=== PATIENT | male | born 1960 | race Caucasian/White ===

== ENCOUNTER 2024-10-15 08:50 | Emergency (ER) | payer OTHER, SELFPAY ==
[2024-10-15] VITALS (16 sets, daily range): BP systolic 141–159; BP diastolic 83–101; PULSE 62–69; RESP 7–20; TEMP 36.8; O2SAT 93–97; BMI 32.2
--- NOTE | 2024-10-15 09:32 | ED.NEUROSD ---
HPI - Neuro Symptoms/Deficit General Time Seen by Provider: 09:32 Date Seen: 10/15/24 Chief Complaint: Neuro Symptoms/Altered Deficit Stated Complaint: Confusion Time Seen by Provider: 10/15/24 09:31 Source: patient and RN notes reviewed Mode of arrival: ambulatory Limitations: no limitations History of Present Illness HPI Narrative: Micky is a very pleasant 63-year-old gentleman from [place] who comes to the emergency room with family members for evaluation regarding 2 episodes of confusion this morning. Micky noted to be getting up around 730 and 8 and had an episode of confusion witness by family members. This lasted approximately 1 hour at which time they essentially administered the Saxon Stroke Scale which was negative, checked his blood sugar which was elevated, and continue to monitor him. Patient recalls parts of this but does not remember a lot of the interaction even though he was awake. He started feeling better and then felt like the symptoms are coming back and thus came to the ER.. Here in the emergency room ileum states he just feels ?out of it?. He also noted some shakiness in his arms right greater than left. This has not happened to him in the past. He notes that he also had an episode of feeling like he was out of balance when he just returned from the restroom. This had happened a few times in the past week. He has been taking frequent air flights. Denies any ear fullness or ear pain. Family does not note any unusual vomiting, loss of bowel or bladder control, recent trauma Denies chest pain shortness of breath recent illness cough cold congestion fever dysuria or abdominal pain. Related Data Home Medications ?Medication ?Instructions ?Recorded ?Confirmed amlodipine 5 mg tablet (Norvasc) 5 mg PO DAILY 10/15/24 10/15/24 levothyroxine 50 mcg capsule 50 mcg PO DAILY 10/15/24 10/15/24 losartan 50 mg tablet (Cozaar) 50 mg PO BID 10/15/24 10/15/24 metoprolol succinate 50 mg 50 mg PO DAILY 10/15/24 10/15/24 tablet,extended release 24 hr (Toprol XL) red yeast rice 300 mg-coQ10 30 cap PO 10/15/24 dk--wsn 120 mg-epa-fish capsule Allergies Allergy/AdvReac Type Severity Reaction Status Date / Time No Known Drug Allergies Allergy Verified 10/15/24 09:22 Review of Systems Status of ROS: Reports: 10 or more systems reviewed and unremarkable except as noted in History and below Exam Narrative: Exam Narrative: Alert and oriented. No acute distress. EOM is full and pupils are equal round reactive. Head is atraumatic. TMs bilaterally without fluid or erythema. Oral cavity with moist mucous membranes. Neck is supple. Face symmetrical with eyebrow raise and smile. Heart with regular rate and rhythm and lungs are clear bilaterally abdomen soft nontender. Upper extremity strength and motor is intact lower extremity strength and motor is intact dexterity is appropriate. Mentation is normal GCS of 15. NIH SS 0 Const: Vital Signs, click to edit/add: Vital Signs - 24 hr 10/15/24 09:11 Temperature 98.2 F Pulse Rate [Pulse Oximeter] 69 Respiratory Rate 18 Blood Pressure [Ri ght Upper Arm] 159/98 H Pulse Oximetry 95 Oxygen Delivery Me thod Room Air Documenting provider has reviewed patient's vital signs: yes Course Course ED Course: Differential diagnosis includes but is not limited to seizure, TIA, brain lesion, fatigue. At this time patient does note 5 be beers yesterday but none today. No other drug use. No recent trauma. Patient will undergo CT/CTA. Will speak to Neurology. Will obtain EKG, troponin, CBC, comprehensive panel and urinalysis. Reevaluation(s) Reevaluation #1: Patient continues to do well and has had no recurrence of symptoms. Consultations Consultation #1: Dr. Peña of [facility] consulted. At this time agrees with CT CTA but thinks this is like Niharika TIA and more likely possible seizure. After results of CT CTA were return did speak with neurologist about initiation of aspirin or anti seizure medication and he states that he would not to either of these medications but would place patient on seizure precautions and recommends outpatient MRI and EEG Vital Signs Vital signs: Initial Vital Signs Temperature 98.2 F 10/15/24 09:11 Temperature Source Temporal Artery Scan 10/15/24 09:11 Pulse Rate 69 10/15/24 09:11 Respiratory Rate 18 10/15/24 09:11 Blood Pressure 159/98 H 10/15/24 09:11 Blood Pressure Mean 118 H 10/15/24 09:11 Blood Pressure Position Sitting 10/15/24 09:11 Pulse Oximetry 95 10/15/24 09:11 Oxygen Delivery Method Room Air 05/11/25 09:11 Vital Signs Temperature 98.2 F 10/15/24 09:11 Pulse Rate 69 10/15/24 09:11 Respiratory Rate 18 10/15/24 09:11 Blood Pressure 159/98 H 10/15/24 09:11 Pulse Oximetry 95 10/15/24 09:11 Oxygen Delivery Method Room Air 10/15/24 09:11 Temperature 98.2 F 10/15/24 09:11 Pulse Rate 69 10/15/24 09:11 Respiratory Rate 18 10/15/24 09:11 Blood Pressure 159/98 H 10/15/24 09:11 Pulse Oximetry 95 10/15/24 09:11 Oxygen Delivery Method Room Air 10/15/24 09:11 Medications Administered Medications: Discontinued Medications Generic Name Dose Route Start Last Admin Trade Name Freq PRN Reason Stop Dose Admin Sodium Chloride 500 mls @ 500 mls/hr 10/15/24 09:49 10/15/24 10:17 0.9 % Sodium Chloride 500 Ml IV 10/15/24 10:48 500 mls/hr .Q1H ONE Administration MDM - Neuro Symptoms/Deficit MDM Narrative Medical decision making narrative: 1. Episode of confusion-CT and CTA reassuring. In my conversation with Neurology feels this is most likely a possible seizure more than a TIA. Recommend at this time discharging with outpatient MRI and EEG which they can obtain back in their hometown in [place]. Recommend against any activity which could place him at risk for danger such as driving. Would also decrease and eliminate alcohol use until with this is figured out. 2. Disposition-home with family at this time. A note to accompany them to the airport stating reason for ED visit and missed flight. Fully this will may be taken into account when they have to revoke their flight. EKG reassuring with a negative troponin. Second troponin pending Second troponin negative. I did speak once again to Neurology who suggests no medications at this time but does suggest outpatient follow-up. Spoke to Micky regarding need for abstinence from alcohol, driving. Did also provide a note for the airline that he is not cleared for flight until tomorrow. For recurrence of symptoms seek medical attention. Lab Data Attestation: I reviewed the patient's lab results. Labs: Lab Results 10/15/24 10/15/24 10/15/24 Range/Units 09:45 09:52 09:55 WBC 4.97 (4.50-11.00) K/uL RBC 5.08 (4.30-5.90) m/uL Hgb 15.8 (13.5-17.5) gm/dL Hct 47.9 (37.0-53.0) % MCV 94 (80-100) fL MCH 31 (26-34) pg MCHC 33 (32-36) gm/dL RDW Coeff of Zenaida 12.5 (11.5-15.5) % Plt Count 216 (140-440) K/uL Neut % (Auto) 68.0 (42.0-72.0) % Lymph % (Auto) 20.3 (20-44) % [place] % (Auto) 8.7 (0.0-11.0) % Eos % (Auto) 2.2 (0.0-7.0) % Baso % (Auto) 0.4 (0.0-3.0) % Neut # (Auto) 3.38 (1.7-7.0) K/uL Lymph # (Auto) 1.01 (0.90-2.90) K/uL [place] # (Auto) 0.40 (0.00-0.90) K/UL Eos # (Auto) 0.11 (0.00-0.50) K/uL Baso # (Auto) 0.02 (0.00-0.30) K/uL Abs Immat Gran (auto) 0.02 (0.00-0.30) K/uL Imm/Tot Granulo (auto) 0.4 % Sodium 138 (135-149) mmol/L Potassium 4.4 (3.6-5.1) mmol/L Chloride 104 (96-114) mmol/L Carbon Dioxide 26 (20-32) mmol/L Anion Gap 8 (7-15) mEq/L BUN 11 (7-30) mg/dL Creatinine 0.7 (0.5-1.5) mg/dL Estimated Creat Clear 78.44 Estimated GFR 102 ml/min Glucose 119 H (60-115) mg/dL Calcium 9.6 (8.4-10.6) mg/dL Total Bilirubin 0.7 (0.1-1.5) mg/dL AST 37 H (12-35) U/L ALT 37 (4-50) U/L Alkaline Phosphatase 87 (40-150) U/L Total Protein 7.5 (6.0-8.3) g/dL Albumin 4.5 (3.3-5.0) g/dL Urine Color (Yellow) Urine Appearance (Clear) Urine pH (5.0-8.5) Ur Specific [place] (1.000-1.030) Urine Protein (Negative) Urine Glucose (UA) (Negative) Urine Ketones (Negative) Urine Blood (Negative) Urine Nitrite (Negative) Urine Bilirubin (Negative) Urine Urobilinogen (0.2-1.0) Ur Leukocyte Esterase (Negative) Urine RBC (0-2) Urine WBC (0-5) Ur Squamous Epith Cells (None-Few) Urine Bacteria (None) SARS-CoV-2 (PCR) Negative SARS-CoV-2 (Negative) Influenza Type A (PCR) Negative PCR FLU A (Negative) Influenza Type B (PCR) Negative PCR FLU B (Negative) RSV (PCR) Negative PCR RSV (Negative) POC Troponin I 0.00 L (0.01-0.04) ng/ml 10/15/24 10/15/24 Range/Units 10:45 12:00 WBC (4.50-11.00) K/uL RBC (4.30-5.90) m/uL Hgb (13.5-17.5) gm/dL Hct (37.0-53.0) % MCV (80-100) fL MCH (26-34) pg MCHC (32-36) gm/dL RDW Coeff of Zenaida (11.5-15.5) % Plt Count (140-440) K/uL Neut % (Auto) (42.0-72.0) % Lymph % (Auto) (20-44) % [place] % (Auto) (0.0-11.0) % Eos % (Auto) (0.0-7.0) % Baso % (Auto) (0.0-3.0) % Neut # (Auto) (1.7-7.0) K/uL Lymph # (Auto) (0.90-2.90) K/uL [place] # (Auto) (0.00-0.90) K/UL Eos # (Auto) (0.00-0.50) K/uL Baso # (Auto) (0.00-0.30) K/uL Abs Immat Gran (auto) (0.00-0.30) K/uL Imm/Tot Granulo (auto) % Sodium (135-149) mmol/L Potassium (3.6-5.1) mmol/L Chloride (96-114) mmol/L Carbon Dioxide (20-32) mmol/L Anion Gap (7-15) mEq/L BUN (7-30) mg/dL Creatinine (0.5-1.5) mg/dL Estimated Creat Clear Estimated GFR ml/min Glucose (60-115) mg/dL Calcium (8.4-10.6) mg/dL Total Bilirubin (0.1-1.5) mg/dL AST (12-35) U/L ALT (4-50) U/L Alkaline Phosphatase (40-150) U/L Total Protein (6.0-8.3) g/dL Albumin (3.3-5.0) g/dL Urine Color Yellow (Yellow) Urine Appearance Clear (Clear) Urine pH 7.5 (5.0-8.5) Ur Specific [place] 1.010 (1.000-1.030) Urine Protein Negative (Negative) Urine Glucose (UA) Negative (Negative) Urine Ketones Negative (Negative) Urine Blood Negative (Negative) Urine Nitrite Negative (Negative) Urine Bilirubin Negative (Negative) Urine Urobilinogen 0.2 (0.2-1.0) Ur Leukocyte Esterase Negative (Negative) Urine RBC 0-2 (0-2) Urine WBC 0-2 (0-5) Ur Squamous Epith Cells None (None-Few) Urine Bacteria None (None) SARS-CoV-2 (PCR) (Negative) Influenza Type A (PCR) (Negative) Influenza Type B (PCR) (Negative) RSV (PCR) (Negative) POC Troponin I 0.00 L (0.01-0.04) ng/ml Imaging Data CT scan - head: Attestation: I have reviewed the pertinent imaging results. My impression: I do not note any acute findings. Radiologist's impression: No intracranial hemorrhage. Normal appearance of the white matter. No acute or subacute cortically based infarct. No cerebral edema. Small right middle cranial fossa arachnoid cyst. Normal ventricles. No skull fractures. No worrisome focal bone lesion. IMPRESSION: No acute intracranial findings. Head and neck angio: Attestation: I have reviewed the pertinent imaging results. My impression: The origins of the great vessels from the aortic arch are patent. The origin of the right vertebral artery is patent. The origin of the left vertebral artery is patent. The common carotid arteries are patent. There is no stenosis at the origin of the right internal carotid artery. There is no stenosis at the origin of the left internal carotid artery. The rest of the cervical segments of the internal carotid arteries are patent up to the skull base. The left vertebral artery is dominant. The cervical segments of the vertebral arteries are patent up to the skull base. The visualized lung apices are unremarkable. The thyroid gland is unremarkable. The soft tissues of the neck are unremarkable. There are degenerative changes in the cervical spine. IMPRESSION: Patent cervical vasculature. here is no cerebral aneurysm or large vessel occlusion. The right internal carotid artery is normal. The right middle cerebral artery and its branches are normal. The right anterior cerebral artery and its branches are normal. The left internal carotid artery is normal. The left middle cerebral artery and its branches are normal. The left anterior cerebral artery and its branches are normal. The anterior communicating artery is well visualized and appears normal. The right vertebral artery and PICA are normal. The left vertebral artery and PICA are normal. The left vertebral artery is dominant. The basilar artery is patent and appears normal. The right posterior cerebral artery is normal. The left posterior cerebral artery is normal. The visualized venous structures are patent. IMPRESSION: Patent proximal intracranial vasculature without intracranial aneurysms. ECG Data Attestation: I personally reviewed and interpreted this ECG as follows: ECG interpretation date: 10/15/24 Interpretation: EKG by my read shows sinus rhythm at a rate of 69. I do not note any acute ST or T-wave changes. LA and QT intervals within normal limits. Discharge Plan Discharge Clinical Impression: Episode of confusion Patient Disposition: Home, Self-Care Condition: Improved Additional Instructions: Follow-up at home for MRI and EEG. Until such time avoid alcohol, driving, any activity which could place you in danger. Seek medical attention for recurrence of symptoms. Note for airline regarding inability to fly until tomorrow. Prescriptions: No Action amlodipine [Norvasc] 5 mg tablet 5 mg PO DAILY losartan [Cozaar] 50 mg tablet 50 mg PO BID metoprolol succinate [Toprol XL] 50 mg tablet extended release 24 hr 50 mg PO DAILY levothyroxine 50 mcg capsule 50 mcg PO DAILY red [id number] mg capsule PO Follow Up/Referrals: Provider,Not a Local [Primary Care Provider] - Stand Alone Forms: [email or web address] Info Instructions
--- NOTE | 2024-10-15 09:33 | CRLHL7_ITS ---
For Patients: As a result of the Century Cures Act, medical imaging exams and procedure reports are released immediately into your electronic medical record. You may view this report before your referring provider. If you have questions, please contact your health care provider. INDICATION: Confusion. COMPARISON: None. TECHNIQUE: CT of the brain / head without intravenous contrast. Multiplanar axial, coronal, and sagittal reformats were reconstructed. FINDINGS: No intracranial hemorrhage. Normal appearance of the white matter. No acute or subacute cortically based infarct. No cerebral edema. Small right middle cranial fossa arachnoid cyst. Normal ventricles. No skull fractures. No worrisome focal bone lesion. IMPRESSION: No acute intracranial findings. Discussed with Dr. Peña at 9:47 a.m. on 10/15/2024. Please note that all CT scans at this facility use dose modulation, iterative reconstruction, and/or weight-based dosing when appropriate to reduce radiation dose to as low as reasonably achievable. Dictated by Anna Palafox MD @ 10/15/2024 9:48:18 AM (Electronically Signed)
--- NOTE | 2024-10-15 09:45 | CRLHL7_ITS ---
For Patients: As a result of the Century Cures Act, medical imaging exams and procedure reports are released immediately into your electronic medical record. You may view this report before your referring provider. If you have questions, please contact your health care provider. DATE: 10/15/2024 CLINICAL HISTORY: Patient with focal neurological deficits. TECHNIQUE: Standard helical CT image acquisition through the intracranial circulation following intravenous administration of contrast material with bolus tracking. 2D and 3D MIP images for post-processing were performed and interpreted on an independent workstation and 3D images were permanently archived. COMPARISON: CT same day. FINDINGS: There is no cerebral aneurysm or large vessel occlusion. The right internal carotid artery is normal. The right middle cerebral artery and its branches are normal. The right anterior cerebral artery and its branches are normal. The left internal carotid artery is normal. The left middle cerebral artery and its branches are normal. The left anterior cerebral artery and its branches are normal. The anterior communicating artery is well visualized and appears normal. The right vertebral artery and PICA are normal. The left vertebral artery and PICA are normal. The left vertebral artery is dominant. The basilar artery is patent and appears normal. The right posterior cerebral artery is normal. The left posterior cerebral artery is normal. The visualized venous structures are patent. IMPRESSION: Patent proximal intracranial vasculature without intracranial aneurysms. Please note that all CT scans at this facility use dose modulation, iterative reconstruction, and/or weight-based dosing when appropriate to reduce radiation dose to as low as reasonably achievable. Dictated by Lam Cruz MD @ 10/15/2024 11:18:13 AM (Electronically Signed)
--- NOTE | 2024-10-15 09:45 | CRLHL7_ITS ---
For Patients: As a result of the Century Cures Act, medical imaging exams and procedure reports are released immediately into your electronic medical record. You may view this report before your referring provider. If you have questions, please contact your health care provider. DATE: 10/15/2024 CLINICAL HISTORY: Patient with focal neurological deficits. TECHNIQUE: Standard helical CT image acquisition of the neck up to the skull base after bolus intravenous contrast enhancement. 2D and 3D MIP images for post-processing were performed and interpreted on an independent workstation and 3D images were permanently archived. COMPARISON: CT same day. FINDINGS: The origins of the great vessels from the aortic arch are patent. The origin of the right vertebral artery is patent. The origin of the left vertebral artery is patent. The common carotid arteries are patent. There is no stenosis at the origin of the right internal carotid artery. There is no stenosis at the origin of the left internal carotid artery. The rest of the cervical segments of the internal carotid arteries are patent up to the skull base. The left vertebral artery is dominant. The cervical segments of the vertebral arteries are patent up to the skull base. The visualized lung apices are unremarkable. The thyroid gland is unremarkable. The soft tissues of the neck are unremarkable. There are degenerative changes in the cervical spine. IMPRESSION: Patent cervical vasculature. Please note that all CT scans at this facility use dose modulation, iterative reconstruction, and/or weight-based dosing when appropriate to reduce radiation dose to as low as reasonably achievable. Dictated by Lam Cruz MD @ 10/15/2024 11:16:45 AM (Electronically Signed)
[2024-10-15 10:03] LABS: Basophils Absolute Auto 0.02 K/uL (0.00-0.30); Basophils Percent Auto 0.4 % (0.0-3.0); Eosinophils Absolute Auto 0.11 K/uL (0.00-0.50); Eosinophils Percent Auto 2.2 % (0.0-7.0); Hematocrit* 47.9 % (37.0-53.0); Hemoglobin* 15.8 gm/dL (13.5-17.5); Immature Granulocytes Abs Auto 0.02 K/uL (0.00-0.30); Immature Granulocytes Pct Auto 0.4 %; Lymphocytes Absolute Auto 1.01 K/uL (0.90-2.90); Lymphocytes Percent Auto 20.3 % (20-44); Mean Corpuscular HGB Conc 33 gm/dL (32-36); Mean Corpuscular Hemoglobin 31 pg (26-34); Mean Corpuscular Volume 94 fL (80-100); Monocytes Percent Auto 8.7 % (0.0-11.0); Neutrophils Absolute Auto 3.38 K/uL (1.7-7.0); Platelet Count* 216 K/uL (140-440); RDW Coefficient of Variation % 12.5 % (11.5-15.5); Red Blood Count* 5.08 m/uL (4.30-5.90); White Blood Count* 4.97 K/uL (4.50-11.00)
[2024-10-15 10:05] LABS: Slide Review Reflex No
[2024-10-15] MEDS: 0.9 % SODIUM CHLORIDE 500 ML 500 ML IV (10:17)
[2024-10-15 10:23] LABS: Albumin* 4.5 g/dL (3.3-5.0); Chloride* 104 mmol/L (96-114); Potassium* 4.4 mmol/L (3.6-5.1); Sodium* 138 mmol/L (135-149)
[2024-10-15 10:26] LABS: Alanine Aminotransferase* 37 U/L (4-50); Alkaline Phosphatase* 87 U/L (40-150); Anion Gap 8 mEq/L (7-15); Aspartate Amino Transferase* 37 U/L (12-35); Bilirubin Total* 0.7 mg/dL (0.1-1.5); Blood Urea Nitrogen* 11 mg/dL (7-30); Carbon Dioxide* 26 mmol/L (20-32); Creatinine* 0.7 mg/dL (0.5-1.5); Est. Creatinine Clearance* 78.44; Estimated Glomerular Filt Rate 102 ml/min; Total Protein* 7.5 g/dL (6.0-8.3)
[2024-10-15 10:27] LABS: Calcium* 9.6 mg/dL (8.4-10.6); Glucose* 119 mg/dL (60-115)
--- OUTSIDE RECORDS SUMMARY | 2024-10-15 10:30 | XMS_ITS | Clinical Summary ---
Author Organization [facility] Address [address] [place] [id number] Care Team Providers Care Cutting Table Operator First Name Role Phone Claus Petty MD Primary Care Provider [phone] Medications levothyroxine (SYNTHROID) 50 mcg tablet TAKE 1 TABLET BY MOUTH EVERY DAY 90 tablet 01/23/2022 Active amLODIPine (NORVASC) 5 mg tablet TAKE 1 TABLET BY MOUTH TWICE A DAY 180 tablet 01/26/2022 Active Family History Medical History Relation Comments Diabetes Brother Diabetes Father Heart attack Father Hypertension Father Cancer Mother Hypertension Mother Relation Status Comments Brother Father Mother Social History Tobacco Use Types Packs/Day Years Used Date Smoking Tobacco: Never Smokeless Tobacco: Never Alcohol Use Standard Drinks/Week Comments Yes 0 (1 standard drink = 0.6 oz pur e alcohol) Sex and Gender Information Value Date Recorded Sex Assigned at Male 07/02/2018 12:28 PM EST Legal Sex Male 2:27 PM EDT Gender Identity Not on file Sexual Orientation Not on file Last Filed Vital Signs Vital Sign Reading Time Taken Comments Blood Pressure 152/79 01/22/2021 9:47 AM EDT Pulse - - Temperature 37.1 C (98.7 F) 01/22/2021 9:47 AM EDT Respiratory Rate - - Oxygen Saturation - - Inhaled Oxygen Concentration - - Weight 103 kg (228 lb) 01/22/2021 9:47 AM EDT Height 180.3 cm (5' 11) 01/22/2021 9:47 AM EDT Body Mass Index 31.8 01/22/2021 9:47 AM EDT Plan of Treatment Not on file Insurance [facility] [address] Care Teams Cutting Table Operator First Relationship Specialty Start Date End Date Claus Petty MD [address] [place] [address] PCP - General Family Medicine 11/02/23
--- OUTSIDE RECORDS SUMMARY | 2024-10-15 10:30 | XMS_ITS | Referral Summary ---
Author Organization [facility] Address [address] [place] [address] Care Team Providers Care Glass Blower Helper Name Role Phone Alin PEPE MD, Jose Antonio Cherry Primary Care Provid er Encounters * This document contains information received from the source organization and may not represent a complete record from that organization. Date Type Department Care Team Description 08/07/[address] [address] Jose Antonio Ogden III, MD Medication Request 07/27/2024 3:00 PM EST Office Visit [facility] [place] [id number] [facility] [place] [address] Jose Antonio Ogden III, MD Benign essential HTN (Primary Dx); Hypothyroidism (acquired) from Last 3 Months Allergies No known active allergies Medications * This document contains information received from the source organization and may not represent a complete record from that organization. losartan (Cozaar) 100 mg tabletIndicati ons:Benign essential HTN TAKE 1/2 TABLET TWICE A DAY BY MOUTH 90 tablet 1 4 Active metoprolol succinate (Toprol XL) 50 mg extended release 24 hr tabletIndicati ons:Benign essential HTN Take 1 tablet by mouth daily. 30 tablet 4 5 Active rosuvastatin (Crestor) 5 mg tabletIndicati ons:At risk for coronary artery disease Take 1 tablet by mouth daily. 30 tablet 10 5 026 Active levothyroxine (Synthroid) 50 mcg tabletIndicati ons:Hypothyroi dism (acquired) TAKE 1 TABLET BY MOUTH EVERY DAY 90 tablet 1 5 Active amLODIPine (Norvasc) 5 mg tabletIndicati ons:Benign essential HTN Take 1 tablet by mouth 2 times daily. 180 tablet 5 Active levothyroxine (Synthroid) 50 mcg tabletIndicati ons:Hypothyroi dism (acquired) TAKE 1 TABLET BY MOUTH EVERY DAY 90 tablet 1 4 025 Discontinued amLODIPine (Norvasc) 5 mg tabletIndicati ons:Benign essential HTN TAKE 1 TABLET BY MOUTH TWICE A DAY 180 tablet 4 025 Discontinued(Re order) Social History Tobacco Use Types Packs/Day Years Used Date Smoking Tobacco: Never Smokeless Tobacco: Never Tobacco Cessation:Counseling Given: No Alcohol Use Standard Drinks/Week Comments Not Currently 0 (1 standard drink = 0.6 oz pur e alcohol) pt drinks 4 beer a day PHQ-2 Answer Date Recorded PHQ-2 Score 0 02/23/2024 Sex and Gender Information Value Date Recorded Sex Assigned at Not on file Legal Sex Male 10:25 AM EDT Gender Identity Not on file Sexual Orientation Not on file Last Filed Vital Signs Vital Sign Reading Time Taken Comments Blood Pressure 150/95 07/27/2024 2:40 PM EST Pulse 87 07/27/2024 2:40 PM EST Temperature 37.8 C (100 F) 07/27/2024 2:40 PM EST Respiratory Rate 18 07/27/2024 2:40 PM EST Oxygen Saturation 96% 07/27/2024 2:40 PM EST Inhaled Oxygen Concentration - - Weight 105.4 kg (232 lb 6.4 oz) 07/27/2024 2:40 PM EST Height 180.3 cm (5' 11) 07/27/2024 2:40 PM EST Body Mass Index 32.41 07/27/2024 2:40 PM EST Plan of Treatment Not on file Procedures Procedure Name Priority Date/Time Associated Diagnosis Comments MICROSCOPIC, URINE (AUTO) Routine 07/27/2024 3:17 PM EST Benign essential HTN COMPREHENSIVE METABOLIC PANEL Routine 07/27/2024 3:17 PM EST Benign essential HTN CBC AND DIFFERENTIAL Routine 07/27/2024 3:17 PM EST Benign essential HTN LIPID PANEL Routine 07/27/2024 3:17 PM EST Benign essential HTN TSH Routine 07/27/2024 3:17 PM EST Hypothyroidism (acquired) URINALYSIS W/MICROSCOPIC Routine 07/27/2024 3:17 PM EST Benign essential HTN PSA, TOTAL (DIAGNOSTIC) Routine 02/24/2024 10:43 AM EDT Benign prostatic hyperplasia, unspecified whether lower urinary tract symptoms present from Last 3 Months or Most Recently Relevant to Health Maintenance Results * (ABNORMAL) MICROSCOPIC, URINE (AUTO) (07/27/2024 3:17 PM EST) Red Blood Cells, Quantitative 1 <=1 /HPF 07/27/2024 5:21 PM EST [facility] WBC, UA Quantitative 1 <=2 /HPF 07/27/2024 5:21 PM EST [facility] Mucous, UA Few(A) None Seen 07/27/2024 5:21 PM EST [facility] Urine URINE SPECIMEN OBTAINED BY CLEAN CATCH PROCEDURE / Unknown Collection / Unknown 07/27/2024 3:17 PM EST 07/27/2024 3:32 PM EST Jose Antonio Ogden III, MD URINE ORDERABLES Fin al Result [facility] [address] [place] [address], * URINALYSIS (07/27/2024 3:17 PM EST) Color, UA Light Yellow Colorless, Light Yellow, Yellow 07/27/2024 5:21 PM EST [facility] Clarity, UA Clear Clear 07/27/2024 5:21 PM EST [facility] Specific [place], UA 1.024 1.003 - 1.035 07/27/2024 5:21 PM EST [facility] pH, UA 7.0 5.0 - 7.0 07/27/2024 5:21 PM EST [facility] Leukocyte Esterase, UA Negative Negative daya/uL 07/27/2024 5:21 PM EST [facility] Nitrite, UA Negative Negative 07/27/2024 5:21 PM EST [facility] Protein, Urine Negative Negative mg/dL 07/27/2024 5:21 PM EST [facility] Glucose, Urine Negative Negative mg/dL 07/27/2024 5:21 PM EST [facility] Ketone, UA Negative Negative mg/dL 07/27/2024 5:21 PM EST [facility] Urobilinogen, UA <2.0 <2.0 mg/dL 07/27/2024 5:21 PM EST [facility] Bilirubin, UA Negative Negative 07/27/2024 5:21 PM EST [facility] Blood, UA Negative Negative 07/27/2024 5:21 PM EST [facility] Urine URINE SPECIMEN OBTAINED BY CLEAN CATCH PROCEDURE / Unknown Collection / Unknown 07/27/2024 3:17 PM EST 07/27/2024 3:32 PM EST Jose Antonio Ogden III, MD URINE ORDERABLES Fin al Result Performing Organization Address City/State/[facility] Co de Phone Number [facility] [address] [place] [address], * CBC and Differential (07/27/2024 3:17 PM EST) White Blood Cell Count 8.62 2.80 - 11.60 K/cumm LAB HEMATOLOGY METHOD 07/27/2024 4:58 PM EST [facility] Red Blood Cells Count 4.90 3.80 - 5.90 M/cumm LAB HEMATOLOGY METHOD 07/27/2024 4:58 PM EST [facility] Hemoglobin 15.3 12.0 - 18.0 gm/dL LAB HEMATOLOGY METHOD 07/27/2024 4:58 PM EST [facility] Hematocrit 45.1 37.0 - 52.0 % LAB HEMATOLOGY METHOD 07/27/2024 4:58 PM EST [facility] Mean Corpuscular Volume 92.0 80.0 - 99.0 fL LAB HEMATOLOGY METHOD 07/27/2024 4:58 PM EST [facility] Mean Corpuscular Hemoglobin 31.2 27.0 - 34.0 pg LAB HEMATOLOGY METHOD 07/27/2024 4:58 PM EST [facility] Mean Corpuscular Hemoglobin Conc 33.9 33.0 - 36.0 gm/dL LAB HEMATOLOGY METHOD 07/27/2024 4:58 PM EST [facility] Red Cell Distribution Width 13.2 11.5 - 15.4 % LAB HEMATOLOGY METHOD 07/27/2024 4:58 PM EST [facility] Platelet Count 195 130 - 420 K/cumm LAB HEMATOLOGY METHOD 07/27/2024 4:58 PM EST [facility] Mean Platelet Volume 10.7 9.2 - 12.3 fL LAB HEMATOLOGY METHOD 07/27/2024 4:58 PM EST [facility] Nucleated Red Blood Cells, Relative Percent 0.0 /100 WBC LAB HEMATOLOGY METHOD 07/27/2024 4:58 PM EST [facility] Neutrophils, Relative Percent 69.4 36.0 - 80.0 % LAB HEMATOLOGY METHOD 07/27/2024 4:58 PM EST [facility] Lymphocytes, Relative Percent 17.9 11.0 - 51.0 % LAB HEMATOLOGY METHOD 07/27/2024 4:58 PM EST [facility] Monocytes, Relative Percent 9.4 2.0 - 14.0 % LAB HEMATOLOGY METHOD 07/27/2024 4:58 PM EST [facility] Eosinophils Relative Percent 2.6 0.0 - 10.0 % LAB HEMATOLOGY METHOD 07/27/2024 4:58 PM EST [facility] Basophils Relative Percent 0.5 0.0 - 1.5 % LAB HEMATOLOGY METHOD 07/27/2024 4:58 PM EST [facility] Neutrophils, Absolute Count 5.99 1.00 - 7.90 K/cumm LAB HEMATOLOGY METHOD 07/27/2024 4:58 PM EST [facility] Lymphocytes, Absolute Count 1.54 1.10 - 2.70 K/cumm LAB HEMATOLOGY METHOD 07/27/2024 4:58 PM EST [facility] Monocytes, Absolute Count 0.81 0.10 - 1.10 K/cumm LAB HEMATOLOGY METHOD 07/27/2024 4:58 PM EST [facility] Eosinophils Absolute Count 0.22 0.00 - 0.70 K/cumm LAB HEMATOLOGY METHOD 07/27/2024 4:58 PM EST [facility] Basophils Absolute Count 0.04 0.00 - 0.20 K/cumm LAB HEMATOLOGY METHOD 07/27/2024 4:58 PM EST [facility] Blood VENOUS BLOOD SPECIMEN / Unknown Venipuncture / Unknown 07/27/2024 3:17 PM EST 07/27/2024 3:32 PM EST Jose Antonio Ogden III, MD LAB BLOOD ORDERABLES Final Result Performing Organization Address [facility] Co de Phone Number [facility] [address] [phone] * TSH (07/27/2024 3:17 PM EST) Thyroid Stimulating Hormone 4.14 0.35 - 4.94 mIU/L 07/27/2024 5:44 PM EST [facility] Blood VENOUS BLOOD SPECIMEN / Unknown Venipuncture / Unknown 07/27/2024 3:17 PM EST 07/27/2024 3:32 PM EST Jose Antonio Ogden III, MD LAB BLOOD ORDERABLES Final Result Performing Organization Address [facility] Phone Number [facility] [address] [phone] * (ABNORMAL) LIPID PANEL (07/27/2024 3:17 PM EST) Cholesterol 193 <200 mg/dL 07/27/2024 5:27 PM EST [facility] Comment: ADULTS: Desirable: <200 mg/dL Borderline high: 200-239 mg/dL High: > or =240 mg/dL PEDS: Pediatric reference ranges are based on a CALIPER pediatric reference range study (https://caliper.research.[facility].ca/#/search). Triglycerides 261(H) <150 mg/dL 07/27/2024 5:27 PM EST [facility] Comment: Normal: <150 mg/dL Borderline high: 150-199 mg/dL High: 200-499 mg/dL Very high: > or =500 mg/dL HDL Cholesterol 51 >=40 mg/dL 5:27 PM EST [facility] LDL Cholesterol, Calculated 90 <100 mg/dL 07/27/2024 5:27 PM EST [facility] Comment: Desirable: <100 mg/dL Above Desirable: 100-129 mg/dL Borderline High: 130-159 mg/dL High: 160-189 mg/dL Very High: >=190 mg/dL Non HDL Cholesterol 142 mg/dL 07/27/2024 5:27 PM EST [facility] Blood VENOUS BLOOD SPECIMEN / Unknown Venipuncture / Unknown 07/27/2024 3:17 PM EST 07/27/2024 3:32 PM EST [facility] - 07/27/2024 5:27 PM EST Reference ranges for cholesterol, triglycerides, HDL cholesterol, LDL cholesterol, and non-HDL cholesterol are based on the National Cholesterol Education Program (NCEP) and The National Lipid Association Guidelines (Circulation. 2001May 23; 106(25):4184-9683; J Clin Lipidology. 2015; 9:129-169). Jose Antonio Ogden III, MD LAB BLOOD ORDERABLES Final Result [facility] [address] [place] [address], * (ABNORMAL) COMPREHENSIVE METABOLIC PANEL (07/27/2024 3:17 PM EST) Sodium 140.0 135.0 - 145.0 mmol/L 07/27/2024 5:27 PM EST [facility] Potassium 4.0 3.5 - 5.1 mmol/L 07/27/2024 5:27 PM EST [facility] Chloride 108 98 - 108 mmol/L 07/27/2024 5:27 PM EST [facility] CO2 24 22 - 29 mmol/L 07/27/2024 5:27 PM EST [facility] Anion Gap 8 3 - 14 mmol/L 07/27/2024 5:27 PM EST [facility] Glucose 92.0 70.0 - 100.0 mg/dL 07/27/2024 5:27 PM EST [facility] UREA NITROGEN, BLOOD 16 8 - 26 mg/dL 07/27/2024 5:27 PM EST [facility] Creatinine 0.6(L) 0.7 - 1.3 mg/dL 07/27/2024 5:27 PM EST [facility] Egfr 107 >=60 mL/min/1.7 3 sq.m 07/27/2024 5:27 PM EST [facility] Comment:Estimated GFR calcul ated using the 2020 CKD-EPI equation. Calcium 9.3 8.4 - 10.3 mg/dL 07/27/2024 5:27 PM EST [facility] Bilirubin, Total 0.5 0.2 - 1.2 mg/dL 07/27/2024 5:27 PM EST [facility] Ast(SGOT) 25 5 - 34 U/L 07/27/2024 5:27 PM EST [facility] Alt (Sgpt) 30 5 - 45 U/L 07/27/2024 5:27 PM EST [facility] Alkaline Phosphatase 75 35 - 150 U/L 07/27/2024 5:27 PM EST [facility] Protein, Total 7.2 6.4 - 8.3 g/dL 07/27/2024 5:27 PM EST [facility] Albumin 4.1 3.5 - 5.0 g/dL 07/27/2024 5:27 PM EST [facility] Albumin / Globulin Ratio 1.32 >=1.00 07/27/2024 5:27 PM EST [facility] Blood VENOUS BLOOD SPECIMEN / Unknown Venipuncture / Unknown 07/27/2024 3:17 PM EST 07/27/2024 3:32 PM EST Narrative [facility] - 07/27/2024 5:27 PM EST The performing lab has reinstalled the original generation of ALT/AST assays us Jose Antonio Ogden III, MD LAB BLOOD ORDERABLES Final Result [facility] [address] [place] [address], * PSA, TOTAL (DIAGNOSTIC) (02/24/2024 10:43 AM EDT) Psa 1.91 0.00 - 4.00 ng/mL 02/24/2024 5:43 PM EDT [facility] Comment:PSA has been used as a laboratory tool for monitoring patients with prostate cancer. When used in conjunction with a digital rectal exam, the PSA may assist in the detection of prostate cancer. Blood for PSA testing should be collected before manipulating the prostate to avoid false positive results. Interpretation of PSA levels should be considered together with other clinical and diagnostic information. PSA is tissue-specific rather than tumor-specific and it should not be interpreted as absolute evidence of the presence or absence of malignant disease. The lack of specificity limits the usefulness of the test especially when values fall between 4 - 10 ng/mL, the indeterminate diagnostic range having a 75% false positive rate. Blood VENOUS BLOOD SPECIMEN / Unknown Venipuncture / Unknown 02/24/2024 10:43 AM EDT 02/24/2024 10:43 AM EDT Narrative [facility] - 02/24/2024 5:43 PM EDT The [employer] Alinity I Immunoassay System (Chemiluminescence Technology) is used to perform this assay. Reference range is adapted from Sweet method literature. Results obtained by other manufacturers' assays may be different and should not be interpreted interchangeably. Jose Antonio Ogden III, MD LAB BLOOD ORDERABLES Final Result Performing Organization Address City/State/[facility] Co de Phone Number [facility] [address] [place] [address], from Last 3 Months or Most Recently Relevant to Health [place] [address] [place] [address] MEDICARE A AETNA PPO/MC/EC [place] ([place]) [place] [address] MEDICARE A AETNA PPO/MC/EC [place]NTWK (NE) [place] [address] MEDICARE A AETNA PPO/MC/EC INNTWK ([facility]) [place] [address] MEDICARE A AETNA PPO/MC/EC INNTWK ([facility]) [place] [address] Care Teams Glass Blower Helper Relationship Specialty Start Date End Date Jose Antonio Ogden III, MD [address] [place] [address] PCP - General Internal Medicine 01/26/22
--- OUTSIDE RECORDS SUMMARY | 2024-10-15 10:30 | XMS_ITS | Encounter Summary ---
Author Organization [facility] Address [address] [place] [address] Care Team Providers Care System Software Developer Name Role Phone Claus Petty MD Primary Care Provider [phone] Encounter Details Date Type Department Care Team (Late st Contact Info) Description 03/15/2019 Conversion Encounter [employer] HISTORICAL DATA CONVERSIONS [address] [place] [address] Social History Tobacco Use Types Packs/Day Years Used Date Smoking Tobacco: Never Assessed Sex and Gender Information Value Date Recorded Sex Assigned at Male 07/02/2018 12:28 PM EST Legal Sex Male 2:27 PM EDT Gender Identity Not on file Sexual Orientation Not on file documented as of this encounter Plan of Treatment Not on file documented as of this encounter Visit Diagnoses Not on filedocumented in this encounter Care Teams System Software Developer Relationship Specialty Start Date End Date Claus Petty MD [address] [place] [address] PCP - General Family Medicine 11/02/23 documented as of this encounter
--- OUTSIDE RECORDS SUMMARY | 2024-10-15 10:30 | XMS_ITS | Encounter Summary ---
Author Organization [facility] Address [address] [place] [address] Care Team Providers Care Wheel Truer Name Role Phone Alin PEPE MD, Jose Antonio Cherry Primary Care Provid er Reason for Visit * Reason Onset Date Comments Insurance Coverage Situation 03/30/2024 Encounter Details Date Type Department Care Team ([facility] st Contact Info) Description 03/30/2024 Telephone [facility] [address] [place] [address] Irvin Eaton MD [address] [place] [address] Insurance Coverage Situation Social History Tobacco Use Types Packs/Day Years Used Date Smoking Tobacco: Never Smokeless Tobacco: Never Alcohol Use Standard Drinks/Week Comments Not Currently [...] on file documented as of this encounter Miscellaneous Notes * Telephone Encounter - Yumiko Randall CMA - 03/31/2024 10:55 AM EDT I called and spoke with patient, he is scheduled for his orthovisc gel injections. documented in this encounter Plan of Treatment Not on file documented as of this encounter Visit Diagnoses Not on filedocumented in this encounter Care Teams Wheel Truer Relationship Specialty Start Date End Date Jose Antonio Ogedn III, MD [address] [place] [address] PCP - General Internal Medicine 01/26/22 documented as of this encounter
--- OUTSIDE RECORDS SUMMARY | 2024-10-15 10:30 | XMS_ITS | Encounter Summary ---
Author Organization [facility] Address [address] [place] [address] Care Team Providers Care Guest Service Aide Name Role Phone Claus Petty MD Primary Care Provider [phone] Encounter Details Date Type Department Care Team (Late st Contact Info) Description 01/27/2019 Conversion Encounter [employer] HISTORICAL DATA CONVERSIONS [address] [place] [address] Social History Tobacco Use Types Packs/Day Years Used Date Smoking Tobacco: Never Assessed Sex and Gender Information Value Date Recorded Sex Assigned at Male 07/02/2018 12:28 PM EST Legal Sex Male 2:27 PM EDT Gender Identity Not on file Sexual Orientation Not on file documented as of this encounter Miscellaneous Notes * [employer] - HISTORICAL PROVIDER, CONVERSION - 01/27/2019 10:23 AM EDT From: PATSY ELLIOTT To: [facility] , FLOW; Sent: 01/27/2019 10:23:09 EDT Subject: clarification/new referral Caller Name/ Relationship to Patient: ellis Weeks Best Contact Number: [phone] Okay to Leave Voice Mail? y Provider Name: [facility] Name & Location: *when applicable Symptoms / Medical Concerns Call: 1- Have you travelled outside of the [place] in the last 14 days OR been in contact with a sick person who has? *If yes, follow the Infectious Disease Job Aid 2- Ask: What symptoms are you calling about today, AND how long have you had these symptoms? [facility] HPKW List for Symptoms and then Follow Symptom Call Management Work Flow. 3- Ask: Is there any other information you would like to share with nurse/provider? 4- Name of Triage Nurse consulted for call and directions given. *When applicable 5- Name of Triage Nurse taking the call. *When applicable Refill Requests: Review Medication List in Canopy: Obtain the following details for each medication: Medication Name, Dosage, Quantity, Frequency, Quantity Requested (ex: 30-day supply) General Requests: Detailed reason for the call: Referrals-*Include reason for the referral; type of form; general inquiry; new Rx request Patient is requesting a referral to have left knee pain and swelling addressed. Dr Kong took x rays at office visit on 01/09, but patient's knee is still not feeling any better. Patient leg is swelling from the knee to the ankle, which is more now that when patient was seen on01/09. Patient is requesting advice as to whether Dr Kong would want to see him again, or just refer him? Please call patient and let him know, either way. Prior authorization required? If yes, please provide Insurance Name, BIN Number, and Subscriber ID. Ambulatory Encounter Last 04-19-18 , MICKY KONG MD , OV FOV F/U FOR LIPITOR , [facility] 01-09-19 , MICKY KONG MD , Personal history of colon , [facility] Medication List Prescriptions Amlodipine (amLODIPine 5 mg oral tablet) 1 tablet by mouth two times a day, 01/10/2019, MICKY KONG MD Atorvastatin (atorvastatin 20 mg oral tablet) 1 tablet by mouth every day, 01/10/2019, MICKY KONG MD Levothyroxine (levothyroxine 50 mcg (0.05 mg) oral tablet) 1 tablet by mouth every day, 01/10/2019, MICKY KONG MD Losartan (Cozaar 100 mg oral tablet) 1 tablet by mouth every day, 01/10/2019, MICKY KONG MD Zoster vaccine, inactivated (Shingrix intramuscular injection) 0.5 mL intramuscular Once, 01/09/2019, JOSE THEODORE LPN per Dr. Kong we can refer him or he can come back in for knee injection or we can send in a rx tohelp with knee pain. Patient prefers a referral since he has been having problems for a month and pain is radiating downhis leg. Referral placed. documented in this encounter Plan of Treatment Not on file documented as of this encounter Visit Diagnoses Not on filedocumented in this encounter Care Teams Guest Service Aide Relationship Specialty Start Date End Date Claus Petty MD [address] [place] [address] PCP - General Family Medicine 11/02/23 documented as of this encounter
--- OUTSIDE RECORDS SUMMARY | 2024-10-15 10:30 | XMS_ITS | Referral Summary ---
Author Organization [facility] Address [address] [place] [address] Care Team Providers Care Leather Drier Name Role Phone Claus Petty MD Primary Care Provider [phone] Medications levothyroxine (SYNTHROID) 50 mcg tablet TAKE 1 TABLET BY MOUTH EVERY DAY 90 tablet 01/23/2022 Active amLODIPine (NORVASC) 5 mg tablet TAKE 1 TABLET BY MOUTH TWICE A DAY 180 tablet 01/26/2022 Active Social History Tobacco Use Types Packs/Day Years [...] Plan of Treatment Not on file Insurance Care Teams Leather Drier Relationship Specialty Start Date End Date Claus Petty MD [address] [place] [address] PCP - General Family Medicine 11/02/23
--- OUTSIDE RECORDS SUMMARY | 2024-10-15 10:30 | XMS_ITS | Clinical Summary ---
Author Organization [facility] Address [address] [facility] [place] [address] Care Team Providers Care Hand Method Lasting Machine Operator Name Role Phone Unavailable Primary Care Provider Unavailabl e Allergies No known active allergies Medications amLODIPine besylate (NORVASC) 5 mg tablet 11/13/2018 Active levothyroxine sodium (SYNTHROID,LEVOT HROID,LOVOXYL) 50 mcg tablet Take 50 mcg by mouth daily. 02/04/2019 Active atorvastatin (LIPITOR) 20 mg tablet Take 20 mg by mouth daily. 12/20/2018 Active losartan potassium (COZAAR) 100 mg tablet Take 100 mg by mouth daily. 01/10/2019 Active ibuprofen (ADVIL,MOTRIN) 200 mg tablet Take 200 mg by mouth every 6 (six) hours as needed for Pain. Active ondansetron (ZOFRAN) 4 mg tablet Take one tablet (4 mg dose) by mouth every 8 (eight) hours as needed for Nausea. 8 tablet 02/28/2019 Active Social History Tobacco Use Types Packs/Day Years Used Date Smoking Tobacco: Never Smokeless Tobacco: Never Alcohol Use Standard Drinks/Week Comments Yes 0 (1 standard drink = 0.6 oz pur e alcohol) 2-3 beers a day Sex and Gender Information Value Date Recorded Sex Assigned at Not on file Legal Sex Male 3:55 PM EDT Gender Identity Not on file Sexual Orientation Not on file Last Filed Vital Signs Vital Sign Reading Time Taken Comments Blood Pressure 125/89 02/28/2019 1:58 PM EDT Pulse 80 02/28/2019 1:58 PM EDT Temperature 36.5 C (97.7 F) 02/28/2019 1:49 PM EDT Respiratory Rate 18 02/28/2019 1:58 PM EDT Oxygen Saturation 98% 02/28/2019 1:58 PM EDT Inhaled Oxygen Concentration - - Weight 98.4 kg (217 lb) 02/28/2019 11:37 AM EDT Height 177.8 cm (5' 10) 02/28/2019 11:37 AM EDT Body Mass Index 31.14 02/28/2019 11:37 AM EDT Plan of Treatment Not on file Insurance
--- OUTSIDE RECORDS SUMMARY | 2024-10-15 10:30 | XMS_ITS | Encounter Summary ---
Author Organization [employer] Address [address] [place] [address] Care Team Providers Care Civil Engineering Technician Name Role Phone Claus Petty MD Primary Care Provider [phone] Encounter Details Date Type Department Care Team (Late st Contact Info) Description 01/04/2019 Conversion Encounter [facility] [id number] [place] [address] Jose Antonio Blum MD [address] [place] [address] Social History Tobacco Use Types Packs/Day Years Used Date Smoking Tobacco: Never Assessed Sex and Gender Information Value Date Recorded Sex Assigned at Male 07/02/2018 12:28 PM EST Legal Sex Male 2:27 PM EDT Gender Identity Not on file Sexual Orientation Not on file documented as of this encounter Miscellaneous Notes * Pharmacy - Jose Antonio Blum MD - 01/04/2019 12:17 PM EDT Entered by ARLENE ARIZA LPN, CMA on January 04, 2019 12:17:06 EDT From: ARLENE ARIZA LPN, CMA To: [facility]/pharmacy #[id number] Sent: 01/04/2019 12:17:06 EDT Subject: Medication Management Submitted: Order:levothyroxine (levothyroxine 50 mcg (0.05 mg) oral tablet) 1 tablet ORAL Daily call for appt,due thyroid testing Qty: 30 tablet Refills: 0 MOLINA Route To Pharmacy - [id number] Signed by ARLENE ARIZA LPN CMA 01/04/2019 12:16:00 Submitted: Complete:levothyroxine (levothyroxine 50 mcg (0.05 mg) oral tablet) Signed by ARLENE ARIZA [facility] 01/04/2019 12:17:00 Submitted: Complete:levothyroxine (levothyroxine 50 mcg (0.05 mg) oral tablet) Signed by ARLENE ARIZA [facility] 01/04/2019 12:17:00 Not Approved: New Rx to follow levothyroxine (LEVOTHYROXINE 50 MCG TABLET) TAKE 1 TABLET BY MOUTH EVERY DAY Qty: 90 tablet Days Supply: 90 Refills: 3 MOLINA Route To Pharmacy - [facility]/pharmacy #[id number] Signed by ARLENE ARIZA [facility] From: [facility]/pharmacy #[id number] To: MICKY HECK Sent: January 04, 2019 1:26:06 AM EDT Subject: Medication Management Due: January 05, 2019 1:26:06 AM EDT On Hold Pending Signature Drug: levothyroxine (levothyroxine 50 mcg (0.05 mg) oral tablet) TAKE 1 TABLET BY MOUTH EVERY DAY Quantity: 90 tablet Days Supply: 90 Refills: 3 Substitutions Allowed Notes from Pharmacy: Dispensed Drug: levothyroxine (levothyroxine 50 mcg (0.05 mg) oral tablet) TAKE 1 TABLET BY MOUTH EVERY DAY Quantity: 90 tablet Days Supply: 90 Refills: 3 Substitutions Allowed Notes from Pharmacy: REFILL PER PROTOCOL LAST OV:04/19/2018 NEXT OV: none documented in this encounter Plan of Treatment Not on file documented as of this encounter Visit Diagnoses Not on filedocumented in this encounter Care Teams Civil Engineering Technician Relationship Specialty Start Date End Date Voitkov, Claus, MD [address] [place] [address] PCP - General Family Medicine 11/02/23 documented as of this encounter
--- OUTSIDE RECORDS SUMMARY | 2024-10-15 10:30 | XMS_ITS | Encounter Summary ---
Author Organization [facility] Address [address] [place] [address] Care Team Providers Care Authorization Manager Name Role Phone Unavailable Primary Care Provider Unavailabl e Encounter Details Date Type Department Care Team (Late st Contact Info) Description 02/16/2019 Prep for Surgery [facility] [address] [place] [address] Irene Welch, PA-C [address] [address] Social History Tobacco Use Types Packs/Day Years [...]
--- OUTSIDE RECORDS SUMMARY | 2024-10-15 10:31 | XMS_ITS | Clinical Summary ---
Author Organization [facility] Address [address] [place] [address] Care Team Providers Care Construction And Maintenance Inspector Name Role Phone Alin PEPE MD, Jose Antonio Cherry Primary Care Provid er Allergies No known active allergies Medications * [...] DAY 180 tablet 4 025 Discontinued(Re order) Encounters * This document contains information received from the source organization and may not represent a complete record from that organization. Date Type Department Care Team Description 08/07/[address] [phone] Jose Antonio Ogden III, MD Medication Request 07/27/2024 3:00 PM EST Office Visit [facility] [address] [place] [address] Jose Antonio Ogden III, MD Benign essential HTN (Primary Dx); Hypothyroidism (acquired) from Last 3 Months Family History Medical History Relation Name Comments No Known Problems Father No Known Problems Mother Relation Name Status Comments Father Alive Mother Alive Social History Tobacco Use Types Packs/Day Years [...] 07/27/2024 2:40 PM EST Plan of Treatment Health Maintenance Due Date Last Done Comments HEPATITIS C SCREENING 1958 DTAP/TDAP/TD VACCINES (1 - Tdap) 1977 PNEUMOCOCCAL VACCINE: 50+ YEARS (1 of 1 - PCV) 2008 ZOSTER VACCINE (SHINGRIX) (1 of 2) 2008 COVID-19 Vaccine (1 - 2023- season) 2024 PROSTATE CANCER SCREENING 02/23/20252023, 02/18/2023, 01/27/2022 INFLUENZA VACCINE (Season Ended) 2025 COLONOSCOPY 5 YEAR MODIFIER 01/25/2026 08/2 06/2020 (Done Elsewhere (if an imm, document via imm activity)) RSV ADULT VACCINES (1 - 1-dose 75+ series) 2033 HIV INFECTION SCREENING Addressed 01/27/20 (Patient Refused) Overridden with the intention of not completing the topic Procedures Procedure Name Priority Date/Time Associated Diagnosis [...] III, MD URINE ORDERABLES Fin al Result [facility] [address] [place] [address], * URINALYSIS (07/27/2024 3:17 PM EST) Color, UA Light Yellow Colorless, Light Yellow, Yellow 07/27/2024 5:21 PM EST [facility] Clarity, UA Clear Clear 07/27/2024 5:21 PM EST [facility] Specific [place], UA 1.024 1.003 - 1.035 07/27/2024 5:21 [...] 3:17 PM EST 07/27/2024 3:32 PM EST JoseA ntonio Ogden III, MD URINE ORDERABLES Fin al Result [facility] [address] [place] [address], * CBC and Differential (07/27/2024 3:17 PM EST) White Blood Cell Count 8.62 2.80 - 11.60 K/cumm LAB HEMATOLOGY METHOD 07/27/2024 4:58 PM EST [facility] Red Blood Cells Count 4.90 3.80 - 5.90 M/cumm LAB HEMATOLOGY METHOD 07/27/2024 4:58 PM EST [facility] Hemoglobin 15.3 12.0 - 18.0 gm/dL LAB HEMATOLOGY METHOD 07/27/2024 4:58 PM EST [facility] Hematocrit 45.1 37.0 - 52.0 % LAB HEMATOLOGY METHOD 07/27/2024 4:58 PM EST [facility] Mean Corpuscular Volume 92.0 80.0 - 99.0 fL LAB HEMATOLOGY METHOD 07/27/2024 4:58 PM EST [facility] Mean Corpuscular Hemoglobin 31.2 27.0 - 34.0 pg LAB HEMATOLOGY METHOD 07/27/2024 4:58 PM EST [facility] Mean Corpuscular Hemoglobin Conc 33.9 33.0 - 36.0 gm/dL LAB HEMATOLOGY METHOD 07/27/2024 4:58 PM EST [facility] Red Cell Distribution Width 13.2 11.5 - 15.4 % LAB HEMATOLOGY METHOD 07/27/2024 4:58 PM EST [facility] Platelet Count 195 130 - 420 K/cumm LAB HEMATOLOGY METHOD 07/27/2024 4:58 PM EST [facility] Mean Platelet Volume 10.7 9.2 - 12.3 fL LAB HEMATOLOGY METHOD 07/27/2024 4:58 PM EST [facility] Nucleated Red Blood Cells, Relative Percent 0.0 /100 WBC LAB HEMATOLOGY METHOD 07/27/2024 4:58 PM EST [facility] Neutrophils, Relative Percent 69.4 36.0 - 80.0 % LAB HEMATOLOGY METHOD 07/27/2024 4:58 PM EST [facility] Lymphocytes, Relative Percent 17.9 11.0 - [...] 3:17 PM EST 07/27/2024 3:32 PM EST us Jose Antonio Ogden III, MD LAB BLOOD ORDERABLES Final Result Performing Organization Address [facility]/ZIP Co de Phone Number [facility] [address] [place] [address], * TSH (07/27/2024 3:17 PM EST) [facility] Thyroid Stimulating Hormone 4.14 0.35 - 4.94 mIU/L 07/27/2024 5:44 PM EST [facility] Blood VENOUS BLOOD SPECIMEN / Unknown Venipuncture / Unknown 07/27/2024 3:17 PM EST 07/27/2024 3:32 PM EST us Jose Antonio Ogden III, MD LAB BLOOD ORDERABLES Final Result [facility] [address] [place] [address], * (ABNORMAL) LIPID PANEL (07/27/2024 3:17 PM EST) Cholesterol 193 <200 mg/dL 07/27/2024 5:27 PM EST [facility] Comment: ADULTS: Desirable: <200 mg/dL Borderline high: 200-239 mg/dL High: > or =240 mg/dL PEDS: Pediatric reference ranges are based on a CALIPER pediatric reference range study (https://caliper.research.[facility].mi/#/search). Triglycerides 261(H) <150 mg/dL 07/27/2024 5:27 PM [...] PM EST 07/27/2024 3:32 PM EST Narrative [facility] - 07/27/2024 5:27 PM EST Reference ranges for cholesterol, triglycerides, HDL cholesterol, LDL cholesterol, and non-HDL cholesterol are based on the National Cholesterol Education Program (NCEP) and The National Lipid Association Guidelines (Circulation. 2001May 23; 106(25):3951-1325; J Clin Lipidology. 2015; 9:129-169). Jose Antonio Ogden III, MD LAB BLOOD ORDERABLES Final Result [facility] [address] [place] [address], * (ABNORMAL) COMPREHENSIVE METABOLIC PANEL (07/27/2024 3:17 [...] PM EST 07/27/2024 3:32 PM EST Narrative [facility] - 07/27/2024 5:27 PM EST The performing lab has reinstalled the original generation of ALT/AST assays Jose Antonio Ogden III, MD LAB BLOOD ORDERABLES Final Result Performing Organization Address [facility] Phone Number [facility] [address] [place] [address], * PSA, TOTAL (DIAGNOSTIC) (02/24/2024 10:43 AM EDT) Pathologist [facility] Psa 1.91 0.00 - 4.00 ng/mL 02/24/2024 [...] AM EDT 02/24/2024 10:43 AM EDT Narrative [facility] - 02/24/2024 5:43 PM EDT The [employer] Alinity I Immunoassay System (Chemiluminescence Technology) is used to perform this assay. Reference range is adapted from Sweet method literature. Results obtained by other manufacturers' assays may be different and should not be interpreted interchangeably. us Jose Antonio Ogden III, MD LAB BLOOD ORDERABLES Final Result Performing Organization Address [facility] Co de Phone Number [facility] [address] [place] [address], from Last 3 Months or Most Recently Relevant to [place] [address] MEDICARE A AETNA PPO/MC/EC [facility] ([place]) [place] [address] MEDICARE A AETNA PPO/MC/EC [place] ([place]) [place] [address] MEDICARE A AETNA PPO/MC/EC [facility] ([facility]) [place] [address] MEDICARE A AETNA PPO/MC/EC [facility] ([facility]) [place] [address] [place] [address] Care Teams Construction And Maintenance Inspector Relationship Specialty Start Date End Date Jose Antonio Ogden III, MD [address] [place] [address] PCP - General Internal Medicine 01/26/22
[2024-10-15 10:35] LABS: PCR FLU A Negative PCR FLU A (Negative); PCR FLU B Negative PCR FLU B (Negative); PCR RSV Negative PCR RSV (Negative); SARS PCR* Negative SARS-CoV-2 (Negative)
[2024-10-15 10:53] LABS: Appearance Urine Clear (Clear); Bilirubin Urine Negative (Negative); Blood Urine Negative (Negative); Color Urine Yellow (Yellow); Glucose Urine Negative (Negative); Ketones Urine Negative (Negative); Leukocyte Esterase Urine Negative (Negative); Nitrite Urine Negative (Negative); Protein Urine Negative (Negative); Urobilinogen Urine 0.2 (0.2-1.0); pH Urine 7.5 (5.0-8.5)
[2024-10-15 11:02] LABS: RBC Urine 0-2 (0-2); WBC Urine 0-2 (0-5)
== END 2024-10-15 12:15 | disposition home or self-care (01) ==
PROVIDERS: Emergency Provider Family Medicine
DX: R41.0 Disorientation, unspecified (principal)
CPT/HCPCS: 36415; 70450; 70496; 70498; 80053; 81001; 84484; 85025; 87637; 93005; 99284; 99291; J7030; Q9967